=== PATIENT | male | born 1950 | race Caucasian/White ===

== ENCOUNTER 2018-05-04 15:04 | Inpatient (IN) ==
[2018-05-04 16:02] LABS: Basophils % 0.3 % (0.0-0.8); Eosinophils # 0.1 10*3/uL (0.0-0.87); Eosinophils % 0.4 % (0.00-10.9); Hematocrit 37.9 VOL% (42.0-52.0); Hemoglobin 10.9 GM/DL (14.0-18.0); Immature Granulocytes % 0.8 %; Immature Granulocytes Absolute 0.12 #; Lymphocytes # 1.4 10*3/uL (1.4-4.0); Lymphocytes % 9.5 % (21.2-54.2); Mean Corpuscular HGB Conc 28.8 GM/DL (32-36); Mean Corpuscular Hemoglobin 20 PG (27-34); Mean Corpuscular Volume 68.4 FL (87-102); Mean Platelet Volume 9.7 FL (9.6-12.0); Monocytes # 1.3 10*3/uL (0.11-0.8); Monocytes % 8.5 % (1.7-12.7); Neutrophils # 11.9 10*3/uL (1.4-7.4); Neutrophils % 80.5 % (38.7-73.9); Platelet Count 481 T/CUMM (130-400); Red Blood Count 5.54 MC/CUMM (3.8-5.5); White Blood Count 14.7 T/CUMM (4-12)
[2018-05-04 16:09] LABS: Elliptocytes Few; Hypochromasia Slight; Platelet Estimate Adequate; Target Cells Few
[2018-05-04 16:18] LABS: Alanine Aminotransferase 16 U/L (16-61); Albumin 2.8 G/DL (3.4-5.0); Alkaline Phosphatase 189 U/L (45-117); Aspartate Amino Transferase 21 U/L (0-37); Bilirubin,Total < 0.39 MG/DL (0.2-1.0); Blood Urea Nitrogen 10 MG/DL (7-18); Calcium 8.7 MG/DL (8.5-10.1); Glucose 110 MG/DL (74-106); Osmolality,Calculated 267.2 MOS/KG (273-304); Potassium 4.1 MMOL/L (3.5-5.1); Sodium 134 MMOL/L (136-145); Total Protein 7.1 G/DL (6.4-8.3); Troponin I < 0.015 NG/ML (0.00-0.045)
[2018-05-04] MEDS ORDERED: ALBUTEROL/IPRATROPIUM 3 ML NEB RESP TX STA (16:22)
[2018-05-04] MEDS ORDERED: methylPREDNISolone SOD SUC 125 MG/2 ML VIAL IV STA (16:22)
[2018-05-04] MEDS ORDERED: ONDANSETRON 4 MG/2 ML VIAL IV STA (16:23)
[2018-05-04] MEDS ORDERED: fentaNYL 100 MCG/2 ML VIAL IV STA (16:23)
[2018-05-04] MEDS ORDERED: AZITHROMYCIN INJ 500 MG in SODIUM CHLORIDE 0.9% 250 ML IV STA (16:25)
[2018-05-04] MEDS ORDERED: cefTRIAXone 1,000 MG in SODIUM CHLORIDE 0.9% 100 ML IV STA (16:25)
[2018-05-04] MEDS ORDERED: NICOTINE 21 MG/24 HR PATCH TRANSDERM PRN (17:33)
[2018-05-04] MEDS ORDERED: guaiFENesin/DM ER 600-30 MG TABLET PO PRN (17:33)
[2018-05-04] MEDS ORDERED: ONDANSETRON 4 MG/2 ML VIAL IV PRN (17:33)
[2018-05-04] MEDS ORDERED: MORPHINE 4 MG/1 ML VIAL IV PRN (17:37)
[2018-05-04] MEDS ORDERED: POTASSIUM CHLORIDE 20 MEQ TABLET PO PRN (17:41)
[2018-05-04] MEDS ORDERED: SODIUM CHLORIDE 0.9% 1,000 ML IV SCH (18:00)
[2018-05-04] MEDS ORDERED: amLODIPine 5 MG TABLET PO ONE (20:16)
[2018-05-04] MEDS: ALBUTEROL 2.5 MG/3 ML NEB RESP TX SCH (20:45)
[2018-05-04] MEDS: ALBUTEROL/IPRATROPIUM 3 ML NEB RESP TX SCH (20:45)
[2018-05-04] MEDS: DOCUSATE SODIUM 100 MG CAPSULE PO SCH (21:22)
[2018-05-04] MEDS: DICLOFENAC SODIUM 50 MG TABLET PO SCH (21:22)
[2018-05-04] MEDS: GABAPENTIN 600 MG TABLET PO SCH (21:22)
[2018-05-04] MEDS: ZALEPLON 5 MG CAPSULE PO PRN (21:24)
[2018-05-04] MEDS: ENOXAPARIN 40 MG/0.4 ML SYRINGE SUBCUT SCH (21:26)
[2018-05-04] MEDS ORDERED: ALBUTEROL/IPRATROPIUM 3 ML NEB RESP TX PRN (22:24)
[2018-05-05] MEDS: ALBUTEROL 2.5 MG/3 ML NEB RESP TX SCH ×2 (00:52→06:58)
[2018-05-05] MEDS: methylPREDNISolone SOD SUC 40 MG/1 ML VIAL IV SCH ×3 (03:51→22:53)
[2018-05-05 04:50] LABS: Basophils % 0.1 % (0.0-0.8); Hematocrit 35.3 VOL% (42.0-52.0); Hemoglobin 10.1 GM/DL (14.0-18.0); Immature Granulocytes % 0.9 %; Immature Granulocytes Absolute 0.09 #; Lymphocytes # 0.4 10*3/uL (1.4-4.0); Lymphocytes % 3.9 % (21.2-54.2); Mean Corpuscular HGB Conc 28.6 GM/DL (32-36); Mean Corpuscular Hemoglobin 19 PG (27-34); Mean Corpuscular Volume 67.5 FL (87-102); Monocytes # 0.2 10*3/uL (0.11-0.8); Monocytes % 2.2 % (1.7-12.7); Neutrophils # 9.7 10*3/uL (1.4-7.4); Neutrophils % 92.9 % (38.7-73.9); Platelet Count 440 T/CUMM (130-400); Red Blood Count 5.23 MC/CUMM (3.8-5.5); Red Cell Distribution Width 22.6 % (9.3-17.3); White Blood Count 10.5 T/CUMM (4-12)
[2018-05-05 04:56] LABS: Alanine Aminotransferase 12 U/L (16-61); Albumin 2.4 G/DL (3.4-5.0); Alkaline Phosphatase 158 U/L (45-117); Aspartate Amino Transferase 12 U/L (0-37); Bilirubin,Total < 0.39 MG/DL (0.2-1.0); Blood Urea Nitrogen 12 MG/DL (7-18); Calcium 8.6 MG/DL (8.5-10.1); Glucose 193 MG/DL (74-106); Potassium 3.9 MMOL/L (3.5-5.1); Sodium 136 MMOL/L (136-145); Total Protein 6.4 G/DL (6.4-8.3)
[2018-05-05 05:19] LABS: Hypochromasia 1+; Lymphocytes 2 % (20-55); Ovalocytes Slight; Platelet Estimate Adequate; Segmented Neutrophils 98 % (50-85); Total Cells Counted 100
[2018-05-05 07:51] LABS: PT Patient Result 10.4 SECS
[2018-05-05] MEDS ORDERED: ACETAMINOPHEN 325 MG TABLET PO PRN ×2 (09:30)
[2018-05-05 10:01] LABS: % Iron Saturation 8.5 % (18-50)
[2018-05-05 10:29] LABS: Free T4 (Free Thyroxine) 1.24 NG/DL (0.76-1.46); Thyroid Stimulating Hormone 0.715 uIU/ml (0.358-3.74)
[2018-05-05 10:43] LABS: Carcinoembryonic Antigen 25.3 NG/ML (0.0-5.0); Folate 8.8 NG/ML (5.4-24.0)
[2018-05-05] MEDS: OSELTAMIVIR 75 MG CAPSULE PO SCH ×2 (11:05→21:47)
[2018-05-05] MEDS: ALBUTEROL/IPRATROPIUM 3 ML NEB RESP TX SCH ×3 (11:05→19:55)
[2018-05-05] MEDS: ASPIRIN EC 81 MG TABLET PO SCH (11:06)
[2018-05-05] MEDS: METOPROLOL SUCCINATE XL 25 MG TABLET PO SCH (11:06)
[2018-05-05] MEDS: amLODIPine 5 MG TABLET PO SCH (11:06)
[2018-05-05] MEDS: PANTOPRAZOLE 40 MG TABLET PO SCH (11:06)
[2018-05-05] MEDS: DOCUSATE SODIUM 100 MG CAPSULE PO SCH ×2 (11:07→21:48)
[2018-05-05] MEDS: THIAMINE 200 MG/2 ML VIAL IM SCH (11:07)
[2018-05-05] MEDS: DICLOFENAC SODIUM 50 MG TABLET PO SCH ×2 (11:14→21:48)
[2018-05-05] MEDS: DORNASE ALFA 2.5 MG/2.5 ML VIAL RESP TX SCH ×2 (11:15→20:03)
[2018-05-05 11:19] LABS: Lymphocytes,Pleural Fluid 22 %; Monocytes,Pleural Fluid 3 %; Neutrophils,Pleural Fluid 75 %; RBC,Pleural Fluid 36 T/CUMM
[2018-05-05] MEDS ORDERED: methylPREDNISolone SOD SUC 40 MG/1 ML VIAL IV SCH (12:00)
[2018-05-05 12:06] LABS: Cancer Antigen 19-9 5467.3 U/ML (0-37)
[2018-05-05] MEDS: MULTIVITAMIN (OCUVITE) TABLET PO SCH (12:17)
[2018-05-05] MEDS ORDERED: cefTRIAXone 1,000 MG in SYRINGE 1 EACH IV SCH (16:00)
[2018-05-05] MEDS ORDERED: AZITHROMYCIN INJ 500 MG in SODIUM CHLORIDE 0.9% 250 ML IV SCH (19:30)
[2018-05-05] MEDS: GABAPENTIN 600 MG TABLET PO SCH (21:47)
[2018-05-05] MEDS: ENOXAPARIN 40 MG/0.4 ML SYRINGE SUBCUT SCH (21:48)
[2018-05-05] MEDS: ZALEPLON 5 MG CAPSULE PO PRN (21:58)
[2018-05-06 04:47] LABS: Albumin 2.5 G/DL (3.4-5.0); Bilirubin,Total 0.5 MG/DL (0.2-1.0); Calcium 7.9 MG/DL (8.5-10.1); Osmolality,Calculated 276.7 MOS/KG (273-304); Potassium 4.9 MMOL/L (3.5-5.1); Total Protein 6.2 G/DL (6.4-8.3)
[2018-05-06 05:20] LABS: Basophils % 0.1 % (0.0-0.8); Hematocrit 34.1 VOL% (42.0-52.0); Immature Granulocytes % 1.2 %; Immature Granulocytes Absolute 0.31 #; Lymphocytes # 0.7 10*3/uL (1.4-4.0); Lymphocytes % 2.8 % (21.2-54.2); Mean Corpuscular HGB Conc 28.7 GM/DL (32-36); Mean Corpuscular Hemoglobin 20 PG (27-34); Mean Corpuscular Volume 69.3 FL (87-102); Mean Platelet Volume 9.9 FL (9.6-12.0); Monocytes # 0.7 10*3/uL (0.11-0.8); Monocytes % 2.7 % (1.7-12.7); Neutrophils # 24.1 10*3/uL (1.4-7.4); Neutrophils % 93.2 % (38.7-73.9); Platelet Count 435 T/CUMM (130-400); Red Blood Count 4.92 MC/CUMM (3.8-5.5); Red Cell Distribution Width 22.8 % (9.3-17.3); White Blood Count 25.9 T/CUMM (4-12)
[2018-05-06 05:22] LABS: Hemoglobin 9.8 GM/DL (14.0-18.0)
[2018-05-06 05:25] LABS: Anisocytosis 2+; Lymphocytes 3 % (20-55); Microcytosis 2+; Ovalocytes 1+; Platelet Estimate Increased; Segmented Neutrophils 95 % (50-85); Total Cells Counted 100
[2018-05-06] MEDS: methylPREDNISolone SOD SUC 40 MG/1 ML VIAL IV SCH ×2 (06:33→15:59)
[2018-05-06] MEDS: ALBUTEROL/IPRATROPIUM 3 ML NEB RESP TX SCH ×4 (07:37→19:56)
[2018-05-06] MEDS: DORNASE ALFA 2.5 MG/2.5 ML VIAL RESP TX SCH ×2 (07:44→20:03)
[2018-05-06] MEDS ORDERED: predniSONE 10 MG TABLET PO SCH (09:00)
[2018-05-06] MEDS ORDERED: VANCOMYCIN INJ 1,750 MG in SODIUM CHLORIDE 0.9% 500 ML IV ONE (10:00)
[2018-05-06] MEDS: METOPROLOL SUCCINATE XL 25 MG TABLET PO SCH (10:35)
[2018-05-06] MEDS: amLODIPine 5 MG TABLET PO SCH (10:36)
[2018-05-06] MEDS: MULTIVITAMIN (OCUVITE) TABLET PO SCH (10:36)
[2018-05-06] MEDS: PANTOPRAZOLE 40 MG TABLET PO SCH (10:36)
[2018-05-06] MEDS: ASPIRIN EC 81 MG TABLET PO SCH (10:36)
[2018-05-06] MEDS: DOCUSATE SODIUM 100 MG CAPSULE PO SCH ×2 (10:37→21:06)
[2018-05-06] MEDS: traMADol 50 MG TABLET PO PRN (10:41)
[2018-05-06] MEDS: THIAMINE 200 MG/2 ML VIAL IM SCH (10:42)
[2018-05-06] MEDS: OSELTAMIVIR 75 MG CAPSULE PO SCH ×2 (10:43→21:06)
[2018-05-06] MEDS: DICLOFENAC SODIUM 50 MG TABLET PO SCH ×2 (11:22→21:06)
[2018-05-06] MEDS ORDERED: DIAZEPAM 5 MG TABLET PO ONE (14:00)
[2018-05-06] MEDS: AZITHROMYCIN 250 MG TABLET PO SCH (14:35)
[2018-05-06 20:56] LABS: CEA, Pleural Fluid 17 ng/mL
[2018-05-06] MEDS: GABAPENTIN 600 MG TABLET PO SCH (21:05)
[2018-05-06] MEDS: ZALEPLON 5 MG CAPSULE PO PRN (21:06)
[2018-05-06] MEDS: ENOXAPARIN 40 MG/0.4 ML SYRINGE SUBCUT SCH (21:06)
[2018-05-07 05:08] LABS: Calcium 8.3 MG/DL (8.5-10.1); Osmolality,Calculated 278.5 MOS/KG (273-304); Potassium 4.4 MMOL/L (3.5-5.1)
[2018-05-07 05:40] LABS: Basophils % 0.1 % (0.0-0.8); Eosinophils % 0.1 % (0.00-10.9); Hematocrit 32.7 VOL% (42.0-52.0); Immature Granulocytes % 0.7 %; Immature Granulocytes Absolute 0.12 #; Lymphocytes # 1.5 10*3/uL (1.4-4.0); Lymphocytes % 8.9 % (21.2-54.2); Mean Corpuscular HGB Conc 28.4 GM/DL (32-36); Mean Corpuscular Hemoglobin 20 PG (27-34); Mean Corpuscular Volume 69.1 FL (87-102); Mean Platelet Volume 9.7 FL (9.6-12.0); Monocytes # 1.5 10*3/uL (0.11-0.8); Monocytes % 8.4 % (1.7-12.7); Neutrophils # 14.2 10*3/uL (1.4-7.4); Neutrophils % 81.8 % (38.7-73.9); Platelet Count 398 T/CUMM (130-400); Red Blood Count 4.73 MC/CUMM (3.8-5.5); Red Cell Distribution Width 22.5 % (9.3-17.3); White Blood Count 17.3 T/CUMM (4-12)
[2018-05-07 05:41] LABS: Hemoglobin 9.3 GM/DL (14.0-18.0)
[2018-05-07 05:42] LABS: Platelet Estimate Normal
[2018-05-07 05:43] LABS: Hypochromasia 1+; Polychromasia Few
[2018-05-07] MEDS: DORNASE ALFA 2.5 MG/2.5 ML VIAL RESP TX SCH ×2 (07:34→19:55)
[2018-05-07] MEDS: ALBUTEROL/IPRATROPIUM 3 ML NEB RESP TX SCH ×4 (07:34→19:55)
[2018-05-07] MEDS: PANTOPRAZOLE 40 MG TABLET PO SCH (08:21)
[2018-05-07] MEDS: traMADol 50 MG TABLET PO PRN (08:22)
[2018-05-07] MEDS: DOCUSATE SODIUM 100 MG CAPSULE PO SCH ×2 (08:22→21:39)
[2018-05-07] MEDS: ASPIRIN EC 81 MG TABLET PO SCH (08:22)
[2018-05-07] MEDS: METOPROLOL SUCCINATE XL 25 MG TABLET PO SCH (08:22)
[2018-05-07] MEDS: MULTIVITAMIN (OCUVITE) TABLET PO SCH (08:22)
[2018-05-07] MEDS: predniSONE 20 MG TABLET PO SCH (08:22)
[2018-05-07] MEDS: amLODIPine 5 MG TABLET PO SCH (08:22)
[2018-05-07] MEDS: AZITHROMYCIN 250 MG TABLET PO SCH (08:22)
[2018-05-07] MEDS: THIAMINE 200 MG/2 ML VIAL IM SCH (08:23)
[2018-05-07] MEDS ORDERED: KETOROLAC 15 MG/1 ML VIAL IV ONE (09:21)
[2018-05-07] MEDS ORDERED: KETOROLAC 30 MG/1 ML VIAL IV ONE (09:30)
[2018-05-07] MEDS: DICLOFENAC SODIUM 50 MG TABLET PO SCH ×2 (09:30→21:40)
[2018-05-07] MEDS: OSELTAMIVIR 75 MG CAPSULE PO SCH ×2 (09:30→21:39)
[2018-05-07] MEDS ORDERED: KETOROLAC 15 MG/1 ML VIAL IV PRN (10:55)
[2018-05-07] MEDS: MORPHINE ER 15 MG TABLET PO SCH (21:00)
[2018-05-07] MEDS: ZALEPLON 5 MG CAPSULE PO PRN (21:39)
[2018-05-07] MEDS: oxyCODONE/ACETAMINOPHEN 5-325 MG TABLET PO SCH (21:39)
[2018-05-07] MEDS: GABAPENTIN 600 MG TABLET PO SCH (21:40)
[2018-05-07] MEDS: ENOXAPARIN 40 MG/0.4 ML SYRINGE SUBCUT SCH (21:41)
[2018-05-08 05:24] LABS: Calcium 8.4 MG/DL (8.5-10.1); Osmolality,Calculated 277.7 MOS/KG (273-304)
[2018-05-08 05:59] LABS: Basophils % 0.1 % (0.0-0.8); Eosinophils % 0.2 % (0.00-10.9); Hematocrit 33.8 VOL% (42.0-52.0); Hemoglobin 9.7 GM/DL (14.0-18.0); Immature Granulocytes % 1.3 %; Immature Granulocytes Absolute 0.22 #; Lymphocytes # 1.4 10*3/uL (1.4-4.0); Lymphocytes % 8.3 % (21.2-54.2); Mean Corpuscular HGB Conc 28.7 GM/DL (32-36); Mean Corpuscular Hemoglobin 20 PG (27-34); Mean Corpuscular Volume 69.1 FL (87-102); Mean Platelet Volume 9.8 FL (9.6-12.0); Monocytes # 1.6 10*3/uL (0.11-0.8); Monocytes % 9.3 % (1.7-12.7); Neutrophils # 13.6 10*3/uL (1.4-7.4); Neutrophils % 80.8 % (38.7-73.9); Platelet Count 392 T/CUMM (130-400); Red Blood Count 4.89 MC/CUMM (3.8-5.5); Red Cell Distribution Width 22.8 % (9.3-17.3); White Blood Count 16.8 T/CUMM (4-12)
[2018-05-08 06:01] LABS: Hypochromasia 1+; Microcytosis 1+; Ovalocytes Few; Target Cells Slight
[2018-05-08 06:02] LABS: Platelet Estimate Normal
[2018-05-08] MEDS: ALBUTEROL/IPRATROPIUM 3 ML NEB RESP TX SCH ×2 (08:24→12:28)
[2018-05-08] MEDS: DORNASE ALFA 2.5 MG/2.5 ML VIAL RESP TX SCH (08:29)
[2018-05-08] MEDS: MORPHINE ER 15 MG TABLET PO SCH (08:45)
[2018-05-08] MEDS: METOPROLOL SUCCINATE XL 25 MG TABLET PO SCH (08:45)
[2018-05-08] MEDS: DOCUSATE SODIUM 100 MG CAPSULE PO SCH (08:45)
[2018-05-08] MEDS: MULTIVITAMIN (OCUVITE) TABLET PO SCH (08:45)
[2018-05-08] MEDS: PANTOPRAZOLE 40 MG TABLET PO SCH (08:46)
[2018-05-08] MEDS: amLODIPine 5 MG TABLET PO SCH (08:46)
[2018-05-08] MEDS: AZITHROMYCIN 250 MG TABLET PO SCH (08:46)
[2018-05-08] MEDS: predniSONE 20 MG TABLET PO SCH (08:46)
[2018-05-08] MEDS: ASPIRIN EC 81 MG TABLET PO SCH (08:46)
[2018-05-08] MEDS: OSELTAMIVIR 75 MG CAPSULE PO SCH (08:49)
[2018-05-08] MEDS: DICLOFENAC SODIUM 50 MG TABLET PO SCH (08:49)
[2018-05-08] MEDS: oxyCODONE/ACETAMINOPHEN 5-325 MG TABLET PO SCH (08:50)
[2018-05-08 11:48] VITALS: BP 147/74
[2018-05-08] MEDS ORDERED: FERROUS SULFATE 325 MG TABLET PO SCH (21:00)
== END 2018-05-08 12:45 | disposition home or self-care (01) | DRG 186 ==
LOC: N.ED 15:04 → N.EDINP 17:33 → N.4E 18:44 → N.2E 05-05 08:47
PROVIDERS: ADMIT Internal Medicine; ATTEND Internal Medicine
PROC: IRTHORA (2018-05-05 10:00)

== ENCOUNTER 2018-05-20 11:45 | Inpatient (IN) ==
[2018-05-20 12:38] LABS: Albumin 2.6 G/DL (3.4-5.0); Bilirubin,Total 0.4 MG/DL (0.2-1.0); Calcium 8.5 MG/DL (8.5-10.1); Osmolality,Calculated 268.4 MOS/KG (273-304); Potassium 4.6 MMOL/L (3.5-5.1)
[2018-05-20] MEDS ORDERED: ONDANSETRON 4 MG/2 ML VIAL IV STA (12:40)
[2018-05-20] MEDS ORDERED: ONDANSETRON 4 MG/2 ML VIAL ONE (12:41)
[2018-05-20 13:12] LABS: Eosinophils % 3.9 % (0.00-10.9); Hematocrit 34.8 VOL% (42.0-52.0); Hemoglobin 10.1 GM/DL (14.0-18.0); Lymphocytes # 0.4 10*3/uL (1.4-4.0); Lymphocytes % 50.6 % (21.2-54.2); Mean Corpuscular Hemoglobin 20 PG (27-34); Mean Corpuscular Volume 69.3 FL (87-102); Mean Platelet Volume 10.6 FL (9.6-12.0); Monocytes # 0.1 10*3/uL (0.11-0.8); Monocytes % 6.5 % (1.7-12.7); Neutrophils # 0.3 10*3/uL (1.4-7.4); Platelet Count 236 T/CUMM (130-400); Red Blood Count 5.02 MC/CUMM (3.8-5.5); Red Cell Distribution Width 21.9 % (9.3-17.3)
[2018-05-20 13:13] LABS: White Blood Count 0.8 T/CUMM (4-12)
[2018-05-20 14:12] LABS: Lymphocytes 42 % (20-55); Segmented Neutrophils 33 % (50-85)
[2018-05-20 14:13] LABS: Platelet Estimate Normal; Polychromasia Slight; Total Cells Counted 100
[2018-05-20] MEDS ORDERED: MYLANTA/LIDO VISC 2:1 300 ML BOTTLE SWISH/SWAL PRN (14:50)
[2018-05-20] MEDS ORDERED: ACETAMINOPHEN 325 MG TABLET PO PRN (14:50)
[2018-05-20] MEDS ORDERED: diphenhydrAMINE CAP 25 MG CAPSULE PO PRN (14:50)
[2018-05-20] MEDS ORDERED: LACTULOSE 20 GM/30 ML UDCUP PO PRN (14:50)
[2018-05-20] MEDS ORDERED: ALPRAZolam 0.25 MG TABLET PO PRN (14:50)
[2018-05-20] MEDS ORDERED: chlorproMAZINE 25 MG TABLET PO PRN (14:50)
[2018-05-20] MEDS ORDERED: LOPERAMIDE 2 MG CAPSULE PO PRN ×2 (14:50)
[2018-05-20] MEDS ORDERED: PROMETHAZINE INJ 25 MG in SODIUM CHLORIDE 0.9% 50 ML IV PRN (14:50)
[2018-05-20] MEDS ORDERED: chlorproMAZINE INJ 50 MG in SODIUM CHLORIDE 0.9% 100 ML IV PRN (14:50)
[2018-05-20] MEDS ORDERED: MYLANTA/LIDO VISC 2:1 300 ML BOTTLE SWISH/SPIT PRN (14:50)
[2018-05-20] MEDS ORDERED: traMADol 50 MG TABLET PO PRN (14:50)
[2018-05-20] MEDS ORDERED: guaiFENesin 200 MG/10 ML UDCUP PO PRN (14:50)
[2018-05-20] MEDS ORDERED: BENZTROPINE 2 MG/2 ML AMP IV PRN (14:50)
[2018-05-20] MEDS ORDERED: chlorproMAZINE INJ 25 MG in SODIUM CHLORIDE 0.9% 100 ML IV PRN (14:50)
[2018-05-20] MEDS ORDERED: MAGNESIUM HYDROXIDE SUSP 30 ML UDCUP PO PRN (14:50)
[2018-05-20 15:43] LABS: Uric Acid 5.4 MG/DL (3.5-7.2)
[2018-05-20] MEDS: FILGRASTIM-SNDZ 480 MCG/0.8 ML SYRINGE SUBCUT SCH (16:39)
[2018-05-20] MEDS: PIPERACILLIN/TAZOBACTAM 3,375 MG in SODIUM CHLORIDE 0.9% 100 ML IV SCH (16:40)
[2018-05-20] MEDS: SODIUM CHLORIDE 0.9% 1,000 ML IV SCH (17:00)
[2018-05-20] MEDS ORDERED: NICOTINE 14 MG/24 HR PATCH TRANSDERM PRN (17:28)
[2018-05-20] MEDS: ALBUTEROL/IPRATROPIUM 3 ML NEB RESP TX SCH (18:30)
[2018-05-20] MEDS: ENOXAPARIN 40 MG/0.4 ML SYRINGE SUBCUT SCH (21:35)
[2018-05-20] MEDS: GABAPENTIN 600 MG TABLET PO SCH (21:35)
[2018-05-20] MEDS: MORPHINE ER 15 MG TABLET PO SCH (21:35)
[2018-05-21] MEDS: ONDANSETRON 4 MG/2 ML VIAL IV PRN (01:53)
[2018-05-21] MEDS: PIPERACILLIN/TAZOBACTAM 3,375 MG in SODIUM CHLORIDE 0.9% 100 ML IV SCH ×4 (03:35→23:14)
[2018-05-21 04:22] LABS: Eosinophils % 6.8 % (0.00-10.9); Hematocrit 30.3 VOL% (42.0-52.0); Hemoglobin 8.8 GM/DL (14.0-18.0); Lymphocytes # 0.3 10*3/uL (1.4-4.0); Lymphocytes % 57.6 % (21.2-54.2); Mean Corpuscular Hemoglobin 20 PG (27-34); Mean Corpuscular Volume 69.7 FL (87-102); Mean Platelet Volume 10.7 FL (9.6-12.0); Monocytes # 0.1 10*3/uL (0.11-0.8); Monocytes % 10.2 % (1.7-12.7); Neutrophils # 0.2 10*3/uL (1.4-7.4); Neutrophils % 25.4 % (38.7-73.9); Platelet Count 169 T/CUMM (130-400); Red Blood Count 4.35 MC/CUMM (3.8-5.5); White Blood Count 0.6 T/CUMM (4-12)
[2018-05-21 04:32] LABS: Band Neutrophils 5 % (0-10); Eosinophils 6 % (0-10); Hypochromasia 1+; Lymphocytes 55 % (20-55); Microcytosis Slight; Ovalocytes Slight; Platelet Estimate Adequate; Segmented Neutrophils 21 % (50-85); Total Cells Counted 100
[2018-05-21 04:33] LABS: Atypical Lymphocytes Few
[2018-05-21 04:47] LABS: Albumin 2.1 G/DL (3.4-5.0); Bilirubin,Total 1.2 MG/DL (0.2-1.0); Calcium 8.5 MG/DL (8.5-10.1); Osmolality,Calculated 267.2 MOS/KG (273-304); Total Protein 5.9 G/DL (6.4-8.3)
[2018-05-21] MEDS: ALBUTEROL/IPRATROPIUM 3 ML NEB RESP TX SCH ×4 (07:30→19:35)
[2018-05-21] MEDS: PANTOPRAZOLE 40 MG TABLET PO SCH (08:47)
[2018-05-21] MEDS: MORPHINE ER 15 MG TABLET PO SCH ×2 (08:47→20:54)
[2018-05-21] MEDS: FILGRASTIM-SNDZ 480 MCG/0.8 ML SYRINGE SUBCUT SCH (08:47)
[2018-05-21] MEDS ORDERED: DIPHENOXYLATE/ATROPINE 2.5-0.025 MG TABLET PO PRN (08:58)
[2018-05-21] MEDS ORDERED: FILGRASTIM-SNDZ 300 MCG/0.5 ML SYRINGE SUBCUT SCH (09:00)
[2018-05-21] MEDS: ALUMINUM/MAGNES/SIMETH MAX STR 30 ML UDCUP PO PRN (10:57)
[2018-05-21] MEDS: GABAPENTIN 600 MG TABLET PO SCH (20:53)
[2018-05-21] MEDS: ENOXAPARIN 40 MG/0.4 ML SYRINGE SUBCUT SCH (20:54)
[2018-05-21] MEDS: SODIUM CHLORIDE 0.9% 1,000 ML IV SCH (20:59)
[2018-05-21] MEDS: VANCOMYCIN 50 MG/ML 60 ML/BOTTLE PO SCH (23:13)
[2018-05-22 04:50] LABS: Bilirubin,Total 0.8 MG/DL (0.2-1.0); Calcium 7.9 MG/DL (8.5-10.1); Osmolality,Calculated 262.5 MOS/KG (273-304); Potassium 4.1 MMOL/L (3.5-5.1); Total Protein 5.5 G/DL (6.4-8.3)
[2018-05-22 05:06] LABS: Hemoglobin 8.4 GM/DL (14.0-18.0); Lymphocytes # 0.5 10*3/uL (1.4-4.0); Mean Corpuscular Hemoglobin 20 PG (27-34); Mean Corpuscular Volume 68.9 FL (87-102); Mean Platelet Volume 10.6 FL (9.6-12.0); Monocytes # 0.2 10*3/uL (0.11-0.8); Neutrophils # 0.3 10*3/uL (1.4-7.4); Platelet Count 161 T/CUMM (130-400); Red Blood Count 4.21 MC/CUMM (3.8-5.5)
[2018-05-22 05:34] LABS: Atypical Lymphocytes Few; Band Neutrophils 1 % (0-10); Eosinophils 4 % (0-10); Lymphocytes 53 % (20-55); Segmented Neutrophils 30 % (50-85); Total Cells Counted 100
[2018-05-22 05:35] LABS: Hypochromasia 2+; Microcytosis 1+; Platelet Estimate Adequate
[2018-05-22] MEDS: PIPERACILLIN/TAZOBACTAM 3,375 MG in SODIUM CHLORIDE 0.9% 100 ML IV SCH ×3 (06:01→23:41)
[2018-05-22] MEDS: VANCOMYCIN 50 MG/ML 60 ML/BOTTLE PO SCH ×4 (06:04→23:40)
[2018-05-22] MEDS: ALBUTEROL/IPRATROPIUM 3 ML NEB RESP TX SCH ×4 (07:26→20:53)
[2018-05-22] MEDS: ALUMINUM/MAGNES/SIMETH MAX STR 30 ML UDCUP PO PRN (09:23)
[2018-05-22] MEDS: PANTOPRAZOLE 40 MG TABLET PO SCH (09:23)
[2018-05-22] MEDS: MORPHINE ER 15 MG TABLET PO SCH ×2 (09:24→21:46)
[2018-05-22] MEDS: FILGRASTIM-SNDZ 480 MCG/0.8 ML SYRINGE SUBCUT SCH (09:29)
[2018-05-22] MEDS ORDERED: ZINC OXIDE PASTE 113 GM TUBE TOP PRN (10:18)
[2018-05-22] MEDS: CHOLESTYRAMINE 4 GM PACK PO SCH ×3 (13:22→21:47)
[2018-05-22] MEDS: ONDANSETRON 4 MG/2 ML VIAL IV PRN (18:32)
[2018-05-22] MEDS: SODIUM CHLORIDE 0.9% 1,000 ML IV SCH ×2 (21:45→22:00)
[2018-05-22] MEDS: ENOXAPARIN 40 MG/0.4 ML SYRINGE SUBCUT SCH (21:46)
[2018-05-22] MEDS: GABAPENTIN 600 MG TABLET PO SCH (21:47)
[2018-05-23 04:31] LABS: Eosinophils # 0.1 10*3/uL (0.0-0.87); Eosinophils % 10.3 % (0.00-10.9); Hematocrit 27.9 VOL% (42.0-52.0); Immature Granulocytes % 0.8 %; Immature Granulocytes Absolute 0.01 #; Lymphocytes # 0.6 10*3/uL (1.4-4.0); Mean Corpuscular HGB Conc 28.7 GM/DL (32-36); Mean Corpuscular Hemoglobin 20 PG (27-34); Mean Corpuscular Volume 69.8 FL (87-102); Mean Platelet Volume 10.6 FL (9.6-12.0); Monocytes # 0.3 10*3/uL (0.11-0.8); Monocytes % 25.4 % (1.7-12.7); Neutrophils # 0.2 10*3/uL (1.4-7.4); Neutrophils % 17.5 % (38.7-73.9); Platelet Count 193 T/CUMM (130-400); Red Cell Distribution Width 21.2 % (9.3-17.3); White Blood Count 1.3 T/CUMM (4-12)
[2018-05-23 05:01] LABS: Calcium 7.8 MG/DL (8.5-10.1); Osmolality,Calculated 264.2 MOS/KG (273-304); Potassium 3.7 MMOL/L (3.5-5.1)
[2018-05-23 06:02] LABS: Eosinophils 10 % (0-10); Hypochromasia 2+; Lymphocytes 40 % (20-55); Platelet Estimate Normal; Segmented Neutrophils 30 % (50-85); Target Cells 2+; Total Cells Counted 100
[2018-05-23] MEDS: PIPERACILLIN/TAZOBACTAM 3,375 MG in SODIUM CHLORIDE 0.9% 100 ML IV SCH ×3 (06:07→23:27)
[2018-05-23] MEDS: VANCOMYCIN 50 MG/ML 60 ML/BOTTLE PO SCH ×4 (06:08→23:26)
[2018-05-23] MEDS: ALBUTEROL/IPRATROPIUM 3 ML NEB RESP TX SCH ×2 (08:24→11:29)
[2018-05-23] MEDS: MORPHINE ER 15 MG TABLET PO SCH ×2 (08:55→20:14)
[2018-05-23] MEDS: CHOLESTYRAMINE 4 GM PACK PO SCH ×3 (08:55→20:15)
[2018-05-23] MEDS: PANTOPRAZOLE 40 MG TABLET PO SCH (08:55)
[2018-05-23] MEDS: FILGRASTIM-SNDZ 480 MCG/0.8 ML SYRINGE SUBCUT SCH (08:56)
[2018-05-23] MEDS: METOPROLOL SUCCINATE XL 25 MG TABLET PO SCH (12:09)
[2018-05-23] MEDS ORDERED: DIGOXIN 0.5 MG/2 ML AMP IV ONE (13:29)
[2018-05-23] MEDS ORDERED: ALBUTEROL/IPRATROPIUM 3 ML NEB RESP TX PRN (13:29)
[2018-05-23] MEDS ORDERED: METOPROLOL TARTRATE 5 MG/5 ML VIAL IV PRN (13:30)
[2018-05-23] MEDS ORDERED: SODIUM CHLORIDE 0.9% 500 ML IV ONE (13:39)
[2018-05-23] MEDS: ALUMINUM/MAGNES/SIMETH MAX STR 30 ML UDCUP PO PRN (15:27)
[2018-05-23 16:05] LABS: Apearance,Urine CLEAR (Clear); Bilirubin,Urine Negative (Negative); Blood, Urine Negative (Negative); Glucose,Urine (UA) Negative (Negative); Ketones,Urine Negative (Negative); Mucus,Urine Occasional /LPF (Occasional); Nitrite,Urine Negative (Negative); Protein,Urine Negative; RBC,Urine <1 /HPF (0-4); Urine Color Yellow (Yellow); Urine Specific Gravity 1.011 (1.001-1.035); Urine Urobilinogen < 2.0 EU/DL (0.2-1.0); WBC,Urine 1 /HPF (0-6)
[2018-05-23] MEDS ORDERED: FUROSEMIDE 40 MG/4 ML VIAL IV ONE (16:15)
[2018-05-23] MEDS: DIGOXIN 0.25 MG TABLET PO SCH (16:47)
[2018-05-23] MEDS: SODIUM CHLORIDE 0.9% 1,000 ML IV SCH (16:54)
[2018-05-23] MEDS: GABAPENTIN 600 MG TABLET PO SCH (20:14)
[2018-05-23] MEDS: ENOXAPARIN 40 MG/0.4 ML SYRINGE SUBCUT SCH (20:15)
[2018-05-24 06:06] LABS: Calcium 7.5 MG/DL (8.5-10.1); Osmolality,Calculated 265.1 MOS/KG (273-304); Potassium 3.4 MMOL/L (3.5-5.1)
[2018-05-24] MEDS: PIPERACILLIN/TAZOBACTAM 3,375 MG in SODIUM CHLORIDE 0.9% 100 ML IV SCH ×3 (06:15→23:41)
[2018-05-24] MEDS: VANCOMYCIN 50 MG/ML 60 ML/BOTTLE PO SCH ×3 (06:16→18:52)
[2018-05-24 06:35] LABS: Basophils % 0.3 % (0.0-0.8); Eosinophils # 0.3 10*3/uL (0.0-0.87); Eosinophils % 9.3 % (0.00-10.9); Hematocrit 27.7 VOL% (42.0-52.0); Immature Granulocytes % 2.7 %; Immature Granulocytes Absolute 0.08 #; Lymphocytes # 1.1 10*3/uL (1.4-4.0); Lymphocytes % 34.9 % (21.2-54.2); Mean Corpuscular HGB Conc 28.9 GM/DL (32-36); Mean Corpuscular Hemoglobin 20 PG (27-34); Mean Corpuscular Volume 69.3 FL (87-102); Mean Platelet Volume 10.4 FL (9.6-12.0); Monocytes # 0.9 10*3/uL (0.11-0.8); Monocytes % 28.9 % (1.7-12.7); Neutrophils # 0.7 10*3/uL (1.4-7.4); Neutrophils % 23.9 % (38.7-73.9); Platelet Count 268 T/CUMM (130-400); Red Cell Distribution Width 21.7 % (9.3-17.3)
[2018-05-24 06:43] LABS: Anisocytosis 2+; Atypical Lymphocytes 1+; Band Neutrophils 4 % (0-10); Eosinophils 5 % (0-10); Hypochromasia 2+; Lymphocytes 36 % (20-55); Macrocytosis 1+; Metamyelocytes 3 %; Platelet Estimate Normal; Segmented Neutrophils 23 % (50-85); Target Cells 1+; Total Cells Counted 100
[2018-05-24] MEDS: CHOLESTYRAMINE 4 GM PACK PO SCH ×3 (09:16→20:57)
[2018-05-24] MEDS: MORPHINE ER 15 MG TABLET PO SCH (09:16)
[2018-05-24] MEDS: DIGOXIN 0.25 MG TABLET PO SCH (09:16)
[2018-05-24] MEDS: METOPROLOL SUCCINATE XL 25 MG TABLET PO SCH (09:16)
[2018-05-24] MEDS: PANTOPRAZOLE 40 MG TABLET PO SCH (09:17)
[2018-05-24] MEDS: FILGRASTIM-SNDZ 480 MCG/0.8 ML SYRINGE SUBCUT SCH (09:17)
[2018-05-24] MEDS ORDERED: MORPHINE 4 MG/1 ML VIAL ONE (19:02)
[2018-05-24] MEDS: MORPHINE 10 MG/1 ML VIAL IV PRN (19:06)
[2018-05-24] MEDS: ENOXAPARIN 40 MG/0.4 ML SYRINGE SUBCUT SCH (20:55)
[2018-05-24] MEDS: TEMAZEPAM 7.5 MG CAPSULE PO PRN (22:30)
[2018-05-24] MEDS: GABAPENTIN 600 MG TABLET PO SCH (22:31)
[2018-05-25] MEDS: MORPHINE ER 15 MG TABLET PO SCH ×3 (00:15→21:01)
[2018-05-25] MEDS: VANCOMYCIN 50 MG/ML 60 ML/BOTTLE PO SCH ×5 (00:42→23:35)
[2018-05-25] MEDS: MORPHINE 10 MG/1 ML VIAL IV PRN (00:49)
[2018-05-25 05:53] LABS: Calcium 8.1 MG/DL (8.5-10.1); Potassium 3.5 MMOL/L (3.5-5.1)
[2018-05-25 06:14] LABS: Basophils # 0.1 10*3/uL (0.0-0.2); Basophils % 0.6 % (0.0-0.8); Eosinophils # 0.8 10*3/uL (0.0-0.87); Eosinophils % 4.6 % (0.00-10.9); Hematocrit 32.9 VOL% (42.0-52.0); Immature Granulocytes % 13.8 %; Immature Granulocytes Absolute 2.33 #; Lymphocytes # 1.6 10*3/uL (1.4-4.0); Lymphocytes % 9.5 % (21.2-54.2); Mean Corpuscular HGB Conc 28.6 GM/DL (32-36); Mean Corpuscular Hemoglobin 20 PG (27-34); Mean Corpuscular Volume 71.4 FL (87-102); Mean Platelet Volume 10.4 FL (9.6-12.0); Monocytes # 3.3 10*3/uL (0.11-0.8); Monocytes % 19.4 % (1.7-12.7); NRBC # 0.04 10*3/uL; Neutrophils # 8.8 10*3/uL (1.4-7.4); Neutrophils % 52.1 % (38.7-73.9); Platelet Count 401 T/CUMM (130-400); Red Blood Count 4.61 MC/CUMM (3.8-5.5); Red Cell Distribution Width 22.5 % (9.3-17.3); White Blood Count 16.9 T/CUMM (4-12)
[2018-05-25 06:17] LABS: Hemoglobin 9.4 GM/DL (14.0-18.0)
[2018-05-25 06:25] LABS: Band Neutrophils 53 % (0-10); Eosinophils 3 % (0-10); Lymphocytes 18 % (20-55); Segmented Neutrophils 15 % (50-85); Total Cells Counted 100
[2018-05-25 06:26] LABS: Anisocytosis 1+; Smudge Cells Few
[2018-05-25] MEDS: CHOLESTYRAMINE 4 GM PACK PO SCH ×3 (08:39→21:01)
[2018-05-25] MEDS: PANTOPRAZOLE 40 MG TABLET PO SCH (08:40)
[2018-05-25] MEDS: DIGOXIN 0.25 MG TABLET PO SCH (08:40)
[2018-05-25] MEDS: FILGRASTIM-SNDZ 480 MCG/0.8 ML SYRINGE SUBCUT SCH (08:41)
[2018-05-25] MEDS: METOPROLOL SUCCINATE XL 25 MG TABLET PO SCH (08:41)
[2018-05-25] MEDS: PIPERACILLIN/TAZOBACTAM 3,375 MG in SODIUM CHLORIDE 0.9% 100 ML IV SCH ×3 (08:42→23:00)
[2018-05-25] MEDS: GABAPENTIN 600 MG TABLET PO SCH (21:01)
[2018-05-25] MEDS: ENOXAPARIN 40 MG/0.4 ML SYRINGE SUBCUT SCH (21:02)
[2018-05-25] MEDS: TEMAZEPAM 7.5 MG CAPSULE PO PRN (23:35)
[2018-05-26 04:58] LABS: Calcium 8.2 MG/DL (8.5-10.1); Osmolality,Calculated 270.7 MOS/KG (273-304); Potassium 4.1 MMOL/L (3.5-5.1)
[2018-05-26 05:26] LABS: Basophils # 0.1 10*3/uL (0.0-0.2); Basophils % 0.2 % (0.0-0.8); Eosinophils # 1.4 10*3/uL (0.0-0.87); Hematocrit 34.4 VOL% (42.0-52.0); Hemoglobin 9.6 GM/DL (14.0-18.0); Immature Granulocytes % 17.3 %; Immature Granulocytes Absolute 8.05 #; Lymphocytes # 2.9 10*3/uL (1.4-4.0); Lymphocytes % 6.2 % (21.2-54.2); Mean Corpuscular HGB Conc 27.9 GM/DL (32-36); Mean Corpuscular Hemoglobin 20 PG (27-34); Mean Corpuscular Volume 72.4 FL (87-102); Mean Platelet Volume 10.5 FL (9.6-12.0); Monocytes # 6.5 10*3/uL (0.11-0.8); Monocytes % 13.9 % (1.7-12.7); NRBC # 0.15 10*3/uL; Neutrophils # 27.6 10*3/uL (1.4-7.4); Neutrophils % 59.4 % (38.7-73.9); Platelet Count 510 T/CUMM (130-400); Red Blood Count 4.75 MC/CUMM (3.8-5.5); Red Cell Distribution Width 22.8 % (9.3-17.3)
[2018-05-26 05:32] LABS: White Blood Count 46.5 T/CUMM (4-12)
[2018-05-26 05:35] LABS: Band Neutrophils 8 % (0-10); Eosinophils 1 % (0-10); Lymphocytes 9 % (20-55); Nucleated Red Blood Cells 1 (0-5); Segmented Neutrophils 77 % (50-85); Total Cells Counted 100
[2018-05-26 05:36] LABS: Hypochromasia 1+; Ovalocytes Slight; Platelet Estimate Adequate
[2018-05-26 05:37] LABS: Macrocytosis Slight; Polychromasia Slight
[2018-05-26] MEDS: VANCOMYCIN 50 MG/ML 60 ML/BOTTLE PO SCH ×4 (06:14→23:50)
[2018-05-26] MEDS: MORPHINE ER 15 MG TABLET PO SCH ×2 (08:57→20:26)
[2018-05-26] MEDS: METOPROLOL SUCCINATE XL 25 MG TABLET PO SCH (08:57)
[2018-05-26] MEDS: PIPERACILLIN/TAZOBACTAM 3,375 MG in SODIUM CHLORIDE 0.9% 100 ML IV SCH (08:58)
[2018-05-26] MEDS: CHOLESTYRAMINE 4 GM PACK PO SCH ×3 (08:58→20:26)
[2018-05-26] MEDS: PANTOPRAZOLE 40 MG TABLET PO SCH (08:58)
[2018-05-26] MEDS: DIGOXIN 0.25 MG TABLET PO SCH (08:58)
[2018-05-26] MEDS: MORPHINE 10 MG/1 ML VIAL IV PRN (10:45)
[2018-05-26] MEDS: FUROSEMIDE 40 MG/4 ML VIAL IV SCH (15:47)
[2018-05-26] MEDS: GABAPENTIN 600 MG TABLET PO SCH (20:26)
[2018-05-26] MEDS: ENOXAPARIN 40 MG/0.4 ML SYRINGE SUBCUT SCH (20:26)
[2018-05-27 05:12] LABS: Basophils # 0.1 10*3/uL (0.0-0.2); Basophils % 0.1 % (0.0-0.8); Eosinophils # 1.1 10*3/uL (0.0-0.87); Eosinophils % 2.9 % (0.00-10.9); Immature Granulocytes % 20.7 %; Immature Granulocytes Absolute 7.88 #; Lymphocytes # 2.3 10*3/uL (1.4-4.0); Lymphocytes % 6.1 % (21.2-54.2); Mean Corpuscular HGB Conc 27.9 GM/DL (32-36); Mean Corpuscular Hemoglobin 20 PG (27-34); Mean Corpuscular Volume 71.8 FL (87-102); Mean Platelet Volume 10.8 FL (9.6-12.0); Monocytes # 3.3 10*3/uL (0.11-0.8); Monocytes % 8.6 % (1.7-12.7); NRBC # 0.13 10*3/uL; Neutrophils # 23.4 10*3/uL (1.4-7.4); Neutrophils % 61.6 % (38.7-73.9); Platelet Count 494 T/CUMM (130-400); Red Blood Count 4.39 MC/CUMM (3.8-5.5); Red Cell Distribution Width 22.5 % (9.3-17.3); White Blood Count 38.1 T/CUMM (4-12)
[2018-05-27 05:44] LABS: Calcium 8.1 MG/DL (8.5-10.1); Osmolality,Calculated 270.7 MOS/KG (273-304); Potassium 3.5 MMOL/L (3.5-5.1)
[2018-05-27] MEDS: VANCOMYCIN 50 MG/ML 60 ML/BOTTLE PO SCH ×4 (05:48→23:44)
[2018-05-27 06:01] LABS: Hemoglobin 8.9 GM/DL (14.0-18.0)
[2018-05-27 06:10] LABS: Band Neutrophils 6 % (0-10); Eosinophils 3 % (0-10); Lymphocytes 4 % (20-55); Myelocytes 2 %; Platelet Estimate Adequate; Segmented Neutrophils 77 % (50-85); Total Cells Counted 100
[2018-05-27 06:11] LABS: Hypochromasia 1+; Macrocytosis Slight; Ovalocytes Slight; Polychromasia Slight
[2018-05-27] MEDS: CHOLESTYRAMINE 4 GM PACK PO SCH ×3 (09:03→20:34)
[2018-05-27] MEDS: PANTOPRAZOLE 40 MG TABLET PO SCH (09:03)
[2018-05-27] MEDS: DIGOXIN 0.25 MG TABLET PO SCH (09:03)
[2018-05-27] MEDS: FUROSEMIDE 40 MG/4 ML VIAL IV SCH ×2 (09:03→17:53)
[2018-05-27] MEDS: METOPROLOL SUCCINATE XL 25 MG TABLET PO SCH (09:03)
[2018-05-27] MEDS: MORPHINE ER 15 MG TABLET PO SCH ×2 (09:03→20:34)
[2018-05-27] MEDS: GABAPENTIN 600 MG TABLET PO SCH (20:35)
[2018-05-27] MEDS: MORPHINE 10 MG/1 ML VIAL IV PRN (20:40)
[2018-05-28] MEDS: VANCOMYCIN 50 MG/ML 60 ML/BOTTLE PO SCH ×2 (05:01→14:07)
[2018-05-28 05:04] LABS: Calcium 7.9 MG/DL (8.5-10.1); Potassium 3.4 MMOL/L (3.5-5.1)
[2018-05-28 05:33] LABS: Basophils # 0.1 10*3/uL (0.0-0.2); Basophils % 0.2 % (0.0-0.8); Eosinophils # 1.1 10*3/uL (0.0-0.87); Eosinophils % 3.9 % (0.00-10.9); Hematocrit 33.4 VOL% (42.0-52.0); Immature Granulocytes % 19.1 %; Immature Granulocytes Absolute 5.18 #; Lymphocytes # 2.3 10*3/uL (1.4-4.0); Lymphocytes % 8.4 % (21.2-54.2); Mean Corpuscular HGB Conc 28.1 GM/DL (32-36); Mean Corpuscular Hemoglobin 20 PG (27-34); Mean Corpuscular Volume 71.4 FL (87-102); Mean Platelet Volume 10.1 FL (9.6-12.0); Monocytes # 2.7 10*3/uL (0.11-0.8); Monocytes % 9.8 % (1.7-12.7); NRBC # 0.06 10*3/uL; Neutrophils # 15.9 10*3/uL (1.4-7.4); Neutrophils % 58.6 % (38.7-73.9); Platelet Count 518 T/CUMM (130-400); Red Blood Count 4.68 MC/CUMM (3.8-5.5); Red Cell Distribution Width 23.2 % (9.3-17.3); White Blood Count 27.1 T/CUMM (4-12)
[2018-05-28 05:36] LABS: Hemoglobin 9.4 GM/DL (14.0-18.0)
[2018-05-28 05:44] LABS: Band Neutrophils 1 % (0-10); Eosinophils 2 % (0-10); Hypochromasia 1+; Lymphocytes 11 % (20-55); Ovalocytes Slight; Platelet Estimate Increased; Segmented Neutrophils 76 % (50-85); Total Cells Counted 100
[2018-05-28] MEDS ORDERED: ceFAZolin 1,000 MG in SYRINGE 1 EACH IV ONE (06:00)
[2018-05-28] MEDS: MORPHINE 10 MG/1 ML VIAL IV PRN (07:56)
[2018-05-28] MEDS: FUROSEMIDE 40 MG/4 ML VIAL IV SCH ×2 (07:56→17:09)
[2018-05-28] MEDS: METOPROLOL SUCCINATE XL 25 MG TABLET PO SCH (08:00)
[2018-05-28] MEDS: DIGOXIN 0.25 MG TABLET PO SCH (08:03)
[2018-05-28] MEDS: PANTOPRAZOLE 40 MG TABLET PO SCH (08:03)
[2018-05-28] MEDS: CHOLESTYRAMINE 4 GM PACK PO SCH ×2 (08:03→16:05)
[2018-05-28] MEDS ORDERED: TISSUE ADHESIVE 1 EACH APPLICATOR TOP ONE ×2 (08:54→08:55)
[2018-05-28] MEDS ORDERED: BUPIVACAINE 0.5% 50 ML VIAL ONE (08:55)
[2018-05-28] MEDS ORDERED: HEPARIN 5,000 UNIT/1 ML VIAL ONE (08:55)
[2018-05-28] MEDS ORDERED: VANCOMYCIN 500 MG VIAL ONE (08:55)
[2018-05-28] MEDS ORDERED: CHLOROPROCAINE 2% ONE (08:55)
[2018-05-28] MEDS ORDERED: SODIUM CHLORIDE 0.9% 100 ML IV ONE (10:57)
[2018-05-28] MEDS ORDERED: PROPOFOL 200 MG/20 ML VIAL IV ONE (10:57)
[2018-05-28] MEDS ORDERED: MIDAZOLAM 2 MG/2 ML VIAL ONE (10:57)
[2018-05-28] MEDS ORDERED: fentaNYL 100 MCG/2 ML VIAL ONE (10:57)
[2018-05-28] MEDS ORDERED: ONDANSETRON 4 MG/2 ML VIAL ONE (11:07)
[2018-05-28] MEDS ORDERED: HYDROmorphone 2 MG/1 ML VIAL ONE (11:07)
[2018-05-28] MEDS ORDERED: ONDANSETRON 4 MG/2 ML VIAL IV PRN (11:12)
[2018-05-28] MEDS ORDERED: HYDROmorphone 2 MG/1 ML VIAL IV PRN (11:12)
[2018-05-28 15:51] VITALS: BP 110/65
== END 2018-05-28 17:41 | disposition home or self-care (01) | DRG 981 ==
LOC: EDBD → EDUNIT# → N.EDINP 11:45 → N.ED 11:45 → N.4E 13:38 → SUATTDRO 17:21 → UNDODISIN 05-28 14:35
PROVIDERS: ADMIT Internal Medicine; ATTEND Internal Medicine